=== PATIENT | female | born 1975 | race Caucasian/White ===

== ENCOUNTER 2016-11-04 16:38 | Emergency (ER) | payer OTHER ==
--- NOTE | ~2016-11-04 | CR72 ---
[facility]. [facility] A Service of [facility] & [facility] RADIOLOGY TEXT RESULTS PATIENT: JANETH ALCALA LOCATION: SED : 79 UNIT #: [id number] AGE: [address]: BRIA OSORIO SEX: F ORDER DR: [id number] [place] [id number] E MR#: [id number] Acc #: [id number] NAME: JANETH ALCALA : 1975 SEX: F STUDY DATE/TIME: 11/04/2016 17:55 UNIT: SED ROOM: STUDY DESCRIPTION: CR Chest Single View Portable Attending Physician: Bria Osorio A.P.R.N. Ordering Physician: Bria Osorio A.P.R.N. Primary Care Physician: Glendy Whitten M.D. MEDICAL IMAGING REPORT This report is preliminary unless electronic signature is present. EXAM Single view chest dated 11/04/2016. COMPARISON Two views chest dated 07/02/2015. HISTORY Cough, wheezing and tooth pain for 2 weeks. FINDINGS Single view of the chest was obtained. A single AP portable view of the chest shows both lungs to be clear. The heart is normal in size. The mediastinal contour is normal. No significant bone abnormalities are seen. IMPRESSION Normal portable chest. Dictated by... Karen Campbell M.D. THIS IS AN ELECTRONICALLY VERIFIED REPORT Karen Campbell M.D. at 11/05/2016 8:43 PM CPR/psc TD: 11/05/2016 03:18 JOB #: [id number] MEDICAL IMAGING REPORT Page 1 of 1
[~2016-11-04 16:38] MED LIST: ACETAMINOPHEN500 M6 PO; ALBUTEROL SULFAT8 MG IH; COLACE PO; COMBIVENT U/D3 M2 INH; FLEXERIL10 MG PO; IBUPROFEN600 MG PO; IBUPROFEN800 MG PO; INDERAL LA60 M1 PO; INDERAL60 MG PO; METHADOSE PO; MIRALAX17 G2 PO; PHENERGAN12.5 MG PO; PREDNISONE PO; SYMBICORT INH; VIBRAMYCIN100 M1 PO
[2016-11-04] MEDS ORDERED: INDERAL60 MG PO (16:41)
[2016-11-04] MEDS ORDERED: NEURONTIN800 MG PO (16:42)
[2016-11-04] MEDS ORDERED: ZESTORETIC 20-1 EAC1 PO (16:42)
== END 2016-11-04 18:58 | disposition home or self-care (01) ==
LOC: SED 16:38
DX: J44.1 Chronic obstructive pulmonary disease with (acute) exacerbation (principal); K02.9 Dental caries, unspecified; J06.9 Acute upper respiratory infection, unspecified; K21.9 Gastro-esophageal reflux disease without esophagitis; Z88.0 Allergy status to penicillin
CPT/HCPCS: 71010; 94640; 99283

== ENCOUNTER 2017-01-29 16:09 | Emergency (ER) | payer OTHER ==
[~2017-01-29 16:09] MED LIST changes: +NEURONTIN800 MG PO; +ZESTORETIC 20-1 EAC1 PO
[2017-01-29] MEDS ORDERED: METHADONE HCL50 GM (16:18)
== END 2017-01-29 16:59 | disposition home or self-care (01) ==
LOC: SED 16:09
DX: L03.319 Cellulitis of trunk, unspecified (principal); J44.9 Chronic obstructive pulmonary disease, unspecified; K21.9 Gastro-esophageal reflux disease without esophagitis; F17.200 Nicotine dependence, unspecified, uncomplicated; Z86.19 Personal history of other infectious and parasitic diseases
CPT/HCPCS: 99283